=== PATIENT | female | born 1985 | race Caucasian/White ===

== ENCOUNTER 2023-02-23 10:01 | Inpatient (IN) | payer BC ==
[2023-02-22 12:53] LABS: Platelet Count 212 10x3/uL (150-450)
[2023-02-22 13:11] LABS: HBSAg Index 0.12 S/CO (0-0.99); Hep B Surf Ag Non-Reactive S/CO (NonReactive)
[2023-02-22 13:13] LABS: Syphilis Antibody Nonreactive (Nonreactive); Syphilis Antibody Index 0.03 S/CO (<1.00 Non-Reactive)
[2023-02-23] MEDS ORDERED: Bicitra 30 ML UDCUP PO PRN (10:33)
[2023-02-23] MEDS ORDERED: Famotidine/PF 20 mg/2ml Vial SLOW IVP PRN (10:33)
[2023-02-23] MEDS ORDERED: CEFAZOLIN 2 GM in Sodium Chloride 0.9% 100 ML IVPB SCH (10:33)
[2023-02-23] MEDS ORDERED: hydrALAZINE 20 MG/ML VIAL SLOW IVP PRN ×2 (10:33→18:23)
[2023-02-23] MEDS ORDERED: Promethazine HCl 25 MG/ML VIAL IM PRN ×3 (10:33→18:23)
[2023-02-23] MEDS ORDERED: NS w/ Oxytocin 30 units 500 ML IV SCH (10:33)
[2023-02-23] MEDS ORDERED: Ondansetron PF 4 MG/2 ML Vial IVP PRN ×3 (10:33→18:23)
[2023-02-23 10:34] VITALS: BMI 34.4
[2023-02-23] MEDS ORDERED: Oxytocin 10 UNITS/ML VIAL ONE (10:52)
[2023-02-23] MEDS ORDERED: Morphine PF 10 MG/10 ML VIAL ONE (10:52)
[2023-02-23] MEDS ORDERED: PHENYLEPHRINE-NS 100 MCG/ML 10 ML SYRINGE ONE ×2 (10:52→12:50)
[2023-02-23] MEDS ORDERED: ePHEDrine Sulfate 50 MG/10 ML VIAL ONE (10:52)
[2023-02-23] MEDS ORDERED: Ondansetron PF 4 MG/2 ML Vial ONE (10:52)
[2023-02-23] MEDS ORDERED: Ketorolac Tromethamine 30 MG/ML VIAL ONE (10:53)
[2023-02-23] MEDS ORDERED: Phenylephrine 40 MG/NS 250 ML 250 ML ONE (10:53)
[2023-02-23] MEDS ORDERED: CEFAZOLIN 2 GM VIAL ONE (11:08)
[2023-02-23] MEDS ORDERED: Famotidine/PF 20 mg/2ml Vial ONE (11:09)
[2023-02-23] MEDS ORDERED: Ondansetron HCl/PF 4 MG/2 ML Vial IVP PRN (11:41)
[2023-02-23] MEDS ORDERED: Meperidine HCl/PF 25 MG/ML VIAL SLOW IVP PRN (11:41)
[2023-02-23] MEDS ORDERED: diphenhydrAMINE 50 MG/ML VIAL IVP PRN (11:41)
[2023-02-23] MEDS ORDERED: Moisturizing Cream (Eucerin) 113 GM JAR TOP PRN (11:41)
[2023-02-23] MEDS ORDERED: Naloxone HCl 0.4 mg/ml Vial IVP PRN ×2 (11:41)
[2023-02-23] MEDS ORDERED: Naloxone HCl 0.4 mg/ml Vial IV PRN (11:41)
[2023-02-23] MEDS ORDERED: Promethazine HCl 25 MG SUPP PR PRN (11:41)
[2023-02-23] MEDS ORDERED: fentaNYL 50 mcg/mL 1 mL Vial SLOW IVP PRN (11:41)
[2023-02-23] MEDS: Lactated Ringer's 1,000 ML IV SCH ×2 (11:44→16:32)
[2023-02-23] MEDS ORDERED: Communication Order-Pharmacy FS SCH (11:45)
[2023-02-23] MEDS ORDERED: fentaNYL 50 mcg/mL 1 mL Vial ONE (12:17)
[2023-02-23] MEDS ORDERED: Meperidine HCl/PF 25 MG/ML VIAL ONE (14:01)
[2023-02-23] MEDS ORDERED: Acetaminophen 325 MG TAB PO PRN (18:23)
[2023-02-23] MEDS ORDERED: Bisacodyl 10 MG SUPP PR PRN (18:23)
[2023-02-23] MEDS ORDERED: Boostrix 0.5 ML (Tdap) VIAL (>/=7 yrs of age) IM ONE (18:23)
[2023-02-23] MEDS ORDERED: Lanolin Ointment 7 GM TUBE TOP PRN (18:23)
[2023-02-23] MEDS ORDERED: diphenhydrAMINE 25 MG CAP PO PRN (18:23)
[2023-02-23] MEDS ORDERED: Ketorolac Tromethamine 30 MG/ML VIAL IVP SCH (19:00)
[2023-02-23] MEDS ORDERED: Ketorolac Tromethamine 30 MG/ML VIAL IVP PRN (19:00)
[2023-02-23] MEDS: Ferrous Sulfate 325 MG TAB PO SCH (21:14)
[2023-02-23] MEDS: Docusate 100 MG CAP PO SCH (21:37)
[2023-02-24] MEDS: Ibuprofen 800 MG TAB PO SCH ×3 (05:36→22:00)
[2023-02-24 06:06] LABS: Hemoglobin 9.6 g/dL (12.0-15.5); Mean Corpuscular HGB CONC 32.7 g/dL (32.0-36.0); Mean Corpuscular Hemoglobin 29.5 pg (27.0-33.0); Mean Corpuscular Volume 90.5 fl (81.6-98.3); Mean Platelet Volume 10.5 fl (7.4-10.4); Platelet Count 182 10x3/uL (150-450); RBC Distribution Width 13.4 % (11.5-14.5); Red Blood Cell (RBC) Count 3.25 10x6/uL (3.90-5.03); White Blood Cell (WBC) Count 11.2 10x3/uL (3.5-10.5)
[2023-02-24] MEDS: Prenatal Vitamin 1 TAB PO SCH (09:20)
[2023-02-24] MEDS: Ferrous Sulfate 325 MG TAB PO SCH ×2 (09:20→22:00)
[2023-02-24] MEDS: Docusate 100 MG CAP PO SCH ×2 (09:20→22:00)
[2023-02-24] MEDS: Simethicone Chewable 80 MG TAB PO PRN ×2 (09:21→17:36)
[2023-02-24] MEDS: HYDROcodone/Acetaminophen 5/325 mg Tablet PO PRN ×4 (09:21→22:04)
[2023-02-24] MEDS ORDERED: Zolpidem Tartrate 5 MG TAB PO PRN (21:00)
[2023-02-25] MEDS: HYDROcodone/Acetaminophen 5/325 mg Tablet PO PRN ×3 (01:51→09:04)
[2023-02-25 05:54] VITALS: BP 134/61; TEMP 98.6
[2023-02-25] MEDS: Ibuprofen 800 MG TAB PO SCH (06:21)
[2023-02-25] MEDS: Docusate 100 MG CAP PO SCH (09:01)
[2023-02-25] MEDS: Prenatal Vitamin 1 TAB PO SCH (09:02)
[2023-02-25] MEDS: Ferrous Sulfate 325 MG TAB PO SCH (09:04)
== END 2023-02-25 10:50 | disposition home or self-care (01) | DRG 787 ==
LOC: CSHLD 10:01 → CSHPED 17:44
PROVIDERS: ADMIT Student in an Organized Health Care Education/Training Program; ATTEND Student in an Organized Health Care Education/Training Program
PROC: 10D00Z1 Extraction of Products of Conception, Low, Open Approach (ICD-10-PCS; principal; 2023-02-23)
DX: O13.4 Gestational [pregnancy-induced] hypertension without significant proteinuria, complicating childbirth (principal); O98.52 Other viral diseases complicating childbirth; O34.211 Maternal care for low transverse scar from previous cesarean delivery; Z3A.37 37 weeks gestation of pregnancy; O99.824 Streptococcus B carrier state complicating childbirth; B00.9 Herpesviral infection, unspecified; Z37.0 Single live birth; Z86.19 Personal history of other infectious and parasitic diseases; Z79.899 Other long term (current) drug therapy
CPT/HCPCS: 36415; 85014; 85018; 85027; 85049; 86780; 86850; 86900; 86901; 87340; J1885; J2175; J2274; J2405; J2590; J3010; J3490; J7120; S0028